=== PATIENT | female | born 1960 | race Caucasian/White ===

== ENCOUNTER 2017-04-14 09:54 | Observation (INO) ==
[2017-04-14] MEDS ORDERED: Glycopyrrolate 0.2 MG/ML VIAL IVP ONE (10:40)
[2017-04-14] MEDS ORDERED: Ondansetron 4 MG/2 ML VIAL IVP ONE ×2 (10:40→16:20)
--- NOTE | 2017-04-14 10:43 | Emergency Department Note ---
Disposition Clinical Impression: Gallstone (impacted) Abdominal pain Qualifiers: Abdominal location: epigastric Qualified Code(s): R10.13 - Epigastric pain Disposition: Admitted As Inpatient Condition: Fair Time of Disposition: 16:05 Abdominal Pain HPI - General Chief Complaint: ED Abdominal Pain Stated Complaint: abd pain Time Seen by Provider: 04/14/17 10:29 Source: patient, family Nursing Notes Reviewed: Yes Vital Signs Reviewed: Yes - History of Present Illness HPI Narrative: 56-year-old female presents because of epigastric abdominal pain. She began at 1 AM with sudden onset of epigastric abdominal pain followed by nausea and vomiting. Pain has been persistent since that time. She has had diarrhea on and off for the past 2 days well. No fevers or chills. No radiation of pain to her back or chest. No known ill exposures. No recent injury. No prior surgeries. No history of any gallbladder issues. Pt Subjective Complaint: abdominal pain Onset (ago): hour(s) Consistency: constant Location: epigastric Pain Severity: moderate Pain Scale: 10 Quality: cramping, stabbing, aching Radiation: none Migration to: no migration Improves with: nothing Worsens with: nothing Associated symptoms: Reports: nausea, vomiting, diarrhea. Denies: fever, chills Treatments prior to arrival: none - Related Data Home Medications Medication Instructions Recorded Confirmed Multivitamin [One Daily 1 each PO DAILY 04/14/17 04/14/17 Multivitamin] Terbinafine HCl [Lamisil] 250 mg PO DAILY 04/14/17 04/14/17 Allergies Allergy/AdvReac Type Severity Reaction Status Date / Time No Known Allergies Allergy Verified 04/14/17 09:57 All systems ED: reviewed and negative except as stated. Constitutional: Denies: fever Cardiovascular: Denies: chest pain, palpitations Respiratory: Denies: cough, dyspnea Gastrointestinal: Reports: abdominal pain, nausea, vomiting, diarrhea. Denies: hematemesis Genitourinary: Denies: urgency, dysuria Abdominal Pain PMH - Past Medical History Medical history: Reports: no medical history Female Surgical History: Reports: other Psychiatric history: Reports: no psych history - Social History Smoking status: Never smoker Alcohol use: Reports: occasionally Drug use: Reports: none Physical Exam Patient appears to be in moderate pain - General Limitations: no limitations General appearance: alert - Head Head exam: atraumatic, normocephalic - Eye Eye exam: Present: normal appearance, PERRL - ENT ENT exam: mucous membranes dry - Neck Neck exam: Present: normal inspection - Chest Chest inspection: Present: normal inspection, symmetric chest wall rise - Respiratory Respiratory exam: Present: normal lung sounds bilaterally. Absent: respiratory distress - Cardiovascular Cardiovascular exam: Present: regular rate, normal rhythm - Abdominal Exam Abdominal exam: Present: soft, tenderness (epigastrium, RUQ ) - Extremities Exam Extremities exam: Absent: tenderness - Expanded Lower Extremity Exam Foot/toe exam: Absent: tenderness, swelling Neurovascular/Tendon exam: Present: normal capillary refill. Absent: pulse deficit - Back Exam Back exam: Present: normal inspection. Absent: CVA tenderness (R), CVA tenderness (L) - Neurological Exam Neurological exam: Present: alert, oriented X3 - Psychiatric Psychiatric exam: Present: normal affect, normal mood - Skin Skin exam: Present: warm, dry Course - Reevaluation(s) Reevaluation #1: Gallbladder ultrasound suggests multiple gallstones and probably a stone in the cystic duct. She has no fever but does have a white count of 14,000. Pain is difficult to control. Discussed with Dr. Haines and he will see her in the emergency department. Requested one dose of IV Zosyn. Time: 16:00 Reevaluation #2: Taken to the OR for cholecystectomy Time: 18:26 Vital Signs Temperature 98.1 F 04/14/17 09:55 Pulse Rate 76 04/14/17 09:55 Respiratory Rate 18 04/14/17 09:55 Blood Pressure 165/98 04/14/17 09:55 O2 Sat by Pulse Oximetry 100 04/14/17 09:55 Temperature 98.1 F 04/14/17 09:55 Pulse Rate 80 04/14/17 14:40 Respiratory Rate 16 04/14/17 18:06 Blood Pressure 142/85 04/14/17 18:06 O2 Sat by Pulse Oximetry 96 04/14/17 14:40 Oxygen Delivery Oxygen Delivery Room Air Abdominal Pain - Lab Data Result diagrams: 04/14/17 10:48 04/14/17 10:48 Lab Results 04/14/17 04/14/17 04/14/17 Range/Units 10:48 10:48 10:48 WBC 14.7 H (4.3-11.1) K/mcL RBC 5.24 H (3.82-4.97) M/mcL Hgb 15.5 H (11.5-15.4) g/dL Hct 44.8 (35.3-44.9) % MCV 85.5 (83.0-100.0) fL MCH 29.6 (28.0-33.3) pg MCHC 34.6 (31.6-35.5) g/dL RDW 12.5 (11.5-14.5) % Plt Count 358 (140-400) K/mcL MPV 10.1 (9.4-12.4) fL Immature Gran % 0.3 (0-4) % Seg Neutrophils % 91.8 % Lymphocytes % 5.3 % Monocytes % 2.4 % Eosinophils % 0.1 % Basophils % 0.1 % Neutrophils # 13.5 H (1.6-8.9) K/mcL Lymphocytes # 0.8 (0.6-4.6) K/mcL Monocytes # 0.4 (0.0-1.3) K/mcL Eosinophils # 0.0 (0.0-0.6) K/mcL Basophils # 0.0 (0.0-0.2) K/mcL Sodium 134 L (136-145) mEq/L Potassium 3.4 L (3.5-5.1) mEq/L Chloride 102 (98-107) mEq/L Carbon Dioxide 18 L (23-29) mEq/L BUN 12 (6-20) mg/dL Creatinine 0.52 L (0.60-1.20) mg/dL Est GFR ( Amer) > 60 (> 60) Est GFR (Non-Af Amer) > 60 (> 60) BUN/Creatinine Ratio 23 (6-26) Glucose 156 H (70-105) mg/dL Calculated Osmolality 281 (280-300) Lactic Acid 2.0 (0.5-2.2) mmol/L Calcium 9.8 (8.6-10.3) mg/dL Total Bilirubin 0.6 (0.3-1.0) mg/dL Direct Bilirubin 0.1 (0.0-0.2) mg/dL Indirect Bilirubin 0.5 (0.0-1.2) mg/dL AST 12 L (13-39) Units/L ALT 9 (7-52) Units/L Alkaline Phosphatase 81 (34-104) Units/L Serum Total Protein 7.5 (6.4-8.9) g/dL Albumin 4.8 (3.5-5.7) g/dL Globulin 2.7 (2.4-3.5) g/dL Albumin/Globulin Ratio 1.8 (1.1-2.2) Lipase 24 (11-82) Units/L Urine Color (Yellow) Urine Clarity (Clear) Urine pH (5.0-8.0) pH Units Ur Specific [place] (1.010-1.025) Urine Protein (Neg-Trace) mg/dL Urine Glucose (UA) (Normal) mg/dL Urine Ketones (Negative) mg/dL Urine Blood (Negative) Urine Nitrite (Negative) Urine Bilirubin (Negative) Urine Urobilinogen (Normal) mg/dL Ur Leukocyte Esterase (Negative) Urine Microscopic RBC (0-3) per hpf Urine Microscopic WBC (0-3) per hpf Ur Squamous Epith Cells (None-Few) per lpf Urine Bacteria (None-Few) per hpf Hyaline Casts (None-Few) per lpf Ur Culture Indicated? (NO) 04/14/17 Range/Units 11:40 WBC (4.3-11.1) K/mcL RBC (3.82-4.97) M/mcL Hgb (11.5-15.4) g/dL Hct (35.3-44.9) % MCV (83.0-100.0) fL MCH (28.0-33.3) pg MCHC (31.6-35.5) g/dL RDW (11.5-14.5) % Plt Count (140-400) K/mcL MPV (9.4-12.4) fL Immature Gran % (0-4) % Seg Neutrophils % % Lymphocytes % % Monocytes % % Eosinophils % % Basophils % % Neutrophils # (1.6-8.9) K/mcL Lymphocytes # (0.6-4.6) K/mcL Monocytes # (0.0-1.3) K/mcL Eosinophils # (0.0-0.6) K/mcL Basophils # (0.0-0.2) K/mcL Sodium (136-145) mEq/L Potassium (3.5-5.1) mEq/L Chloride (98-107) mEq/L Carbon Dioxide (23-29) mEq/L BUN (6-20) mg/dL Creatinine (0.60-1.20) mg/dL Est GFR ( Amer) (> 60) Est GFR (Non-Af Amer) (> 60) BUN/Creatinine Ratio (6-26) Glucose (70-105) mg/dL Calculated Osmolality (280-300) Lactic Acid (0.5-2.2) mmol/L Calcium (8.6-10.3) mg/dL Total Bilirubin (0.3-1.0) mg/dL Direct Bilirubin (0.0-0.2) mg/dL Indirect Bilirubin (0.0-1.2) mg/dL AST (13-39) Units/L ALT (7-52) Units/L Alkaline Phosphatase (34-104) Units/L Serum Total Protein (6.4-8.9) g/dL Albumin (3.5-5.7) g/dL Globulin (2.4-3.5) g/dL Albumin/Globulin Ratio (1.1-2.2) Lipase (11-82) Units/L Urine Color Yellow (Yellow) Urine Clarity Clear (Clear) Urine pH 8.5 H (5.0-8.0) pH Units Ur Specific [place] 1.019 (1.010-1.025) Urine Protein 30 H (Neg-Trace) mg/dL Urine Glucose (UA) Normal (Normal) mg/dL Urine Ketones 80 H (Negative) mg/dL Urine Blood Negative (Negative) Urine Nitrite Negative (Negative) Urine Bilirubin Negative (Negative) Urine Urobilinogen Normal (Normal) mg/dL Ur Leukocyte Esterase Negative (Negative) Urine Microscopic RBC 5-15 H (0-3) per hpf Urine Microscopic WBC 0-3 (0-3) per hpf Ur Squamous Epith Cells Many H (None-Few) per lpf Urine Bacteria None Seen (None-Few) per hpf Hyaline Casts None Seen (None-Few) per lpf Ur Culture Indicated? NO (NO)
[2017-04-14 11:00] LABS: Basophils % 0.1 %; Eosinophils % 0.1 %; Hematocrit 44.8 % (35.3-44.9); Hemoglobin 15.5 g/dL (11.5-15.4); Immature Granulocytes % 0.3 % (0-4); Lymphocytes # 0.8 K/mcL (0.6-4.6); Lymphocytes % 5.3 %; Mean Corpuscular HGB Conc 34.6 g/dL (31.6-35.5); Mean Corpuscular Hemoglobin 29.6 pg (28.0-33.3); Mean Corpuscular Volume 85.5 fL (83.0-100.0); Mean Platelet Volume 10.1 fL (9.4-12.4); Monocytes # 0.4 K/mcL (0.0-1.3); Monocytes % 2.4 %; Neutrophils # 13.5 K/mcL (1.6-8.9); Platelet Count 358 K/mcL (140-400); Red Blood Count 5.24 M/mcL (3.82-4.97); Red Cell Distribution Width 12.5 % (11.5-14.5); Segmented Neutrophils % 91.8 %
[2017-04-14] MEDS ORDERED: 0.9 % Sodium Chloride 1,000 ML IVC ONE (11:17)
[2017-04-14] MEDS ORDERED: 0.9 % Sodium Chloride 1,000 ML ONE (11:19)
[2017-04-14 11:37] LABS: Albumin 4.8 g/dL (3.5-5.7); Bilirubin,Direct 0.1 mg/dL (0.0-0.2); Bilirubin,Indirect 0.5 mg/dL (0.0-1.2); Bilirubin,Total 0.6 mg/dL (0.3-1.0); Calcium 9.8 mg/dL (8.6-10.3); Carbon Dioxide 18 mEq/L (23-29); Chloride 102 mEq/L (98-107); Potassium 3.4 mEq/L (3.5-5.1); Sodium 134 mEq/L (136-145)
[2017-04-14 11:44] LABS: Alanine Aminotransferase 9 Units/L (7-52); Albumin/Globulin Ratio 1.8 (1.1-2.2); Alkaline Phosphatase 81 Units/L (34-104); Aspartate Amino Transferase 12 Units/L (13-39); BUN/Creatinine Ratio 23 (6-26); Blood Urea Nitrogen 12 mg/dL (6-20); Globulin 2.7 g/dL (2.4-3.5); Glucose 156 mg/dL (70-105); Lipase 24 Units/L (11-82); Osmolality,Calculated 281 (280-300); Total Protein 7.5 g/dL (6.4-8.9); eGFR For African Americans > 60 (> 60); eGFR For Non-African Americans > 60 (> 60)
[2017-04-14 11:53] LABS: Bilirubin,Urine Negative (Negative); Blood,Urine Negative (Negative); Clarity,Urine Clear (Clear); Color,Urine Yellow (Yellow); Glucose,Urine (UA) Normal (Normal); Ketones,Urine 80 mg/dL (Negative); Leukocyte Esterase,Urine Negative (Negative); Nitrite,Urine Negative (Negative); PH,Urine 8.5 pH Units (5.0-8.0); Protein,Urine 30 mg/dL (Neg-Trace); Specific Gravity,Urine 1.019 (1.010-1.025); Urobilinogen,Urine Normal (Normal)
[2017-04-14 11:56] LABS: Bacteria,Urine None Seen per hpf (None-Few); Hyaline Casts,Urine None Seen per lpf (None-Few); Squamous Epithelial Cell,Urine Many per lpf (None-Few); WBC,Urine 0-3 per hpf (0-3)
[2017-04-14] MEDS ORDERED: Famotidine 20 MG/2 ML VIAL IVP ONE (12:07)
[2017-04-14] MEDS ORDERED: *HR* FentaNYL (PF) 100 MCG/2 ML VIAL IVP ONE ×3 (12:07→16:19)
[2017-04-14] MEDS ORDERED: Piperacillin/Tazobactam 3.375 GM in 0.9 % Sodium Chloride Mini Bag 100 ML IVPB ONE (16:01)
[2017-04-14] MEDS ORDERED: *HR* Promethazine 25 MG/ML VIAL IVP PRN (17:49)
[2017-04-14] MEDS ORDERED: OXYCODONE Oral CONC 10 MG/0.5 ML ORAL.SYG SL PRN (17:51)
[2017-04-14] MEDS: D5% in 0.45% NACL w KCl 20 MEQ/1,000 ML MLS IVC SCH (20:57)
[2017-04-14] MEDS: Ketorolac 15 MG/ML VIAL IVP SCH (23:25)
[2017-04-15] MEDS: Ketorolac 15 MG/ML VIAL IVP SCH ×2 (05:45→20:11)
[2017-04-15] MEDS: D5% in 0.45% NACL w KCl 20 MEQ/1,000 ML MLS IVC SCH ×3 (05:46→21:15)
[2017-04-15] MEDS ORDERED: *HR* Propofol 200 MG/20 ML VIAL IVP ONE (07:37)
[2017-04-15] MEDS ORDERED: Lidocaine -MPF 4% 5 ML AMPUL ONE (07:37)
[2017-04-15] MEDS ORDERED: *HR* Midazolam HCl 2 MG/2 ML VIAL ONE (07:37)
[2017-04-15] MEDS ORDERED: *HR* FentaNYL (PF) 100 MCG/2 ML VIAL ONE ×2 (07:37→11:56)
[2017-04-15] MEDS ORDERED: *HR* Rocuronium Bromide 50 MG/5 ML VIAL ONE (07:37)
[2017-04-15] MEDS ORDERED: Lidocaine -MPF 2% 2 ML VIAL ONE (07:37)
--- NOTE | 2017-04-15 07:55 | Event Note ---
Date of Encounter: 04/15/17 Time of Encounter: 07:53 I reviewed this chart for quality since this patient was assigned to our service. I was not involved in Ms Macias's care. This is not documentation of a [id number] encounter.
[2017-04-15] MEDS ORDERED: Pantoprazole 40 MG VIAL IVP SCH (09:00)
[2017-04-15] MEDS ORDERED: Ringers Solution, Lactated 1,000 ML ONE (09:09)
[2017-04-15] MEDS ORDERED: Ondansetron 4 MG/2 ML VIAL IVP ONE (10:41)
[2017-04-15] MEDS ORDERED: *HR* Promethazine 25 MG/ML VIAL IVP PRN ×2 (10:41→13:25)
[2017-04-15] MEDS ORDERED: *HR* OxyCODONE Immed Rel 5 MG TABLET PO PRN (10:41)
[2017-04-15] MEDS ORDERED: *HR* HYDROmorphone 2 MG TABLET PO PRN (10:41)
[2017-04-15] MEDS ORDERED: *HR* Meperidine 25 MG/ML SYRINGE IVP PRN (10:41)
--- NOTE | 2017-04-15 10:41 | Anesthesia Evaluation PreOp ---
Date of Encounter: 04/15/17 Time of Encounter: 10:39 - Past History Planned Operation: Robotic lap cholecystectomy Cardiac History: Denies any Significant Hx Pulmonary History: Denies Any Significant HX PHARMACY COORDINATOR History: Denies Any Significant HX Other Medical History: Denies Any Significant HX Anesthesia History: No Prior Anesthetic Complications, Past Anesthesia (back sx , colonoscopy) Alcohol Use: occasionally Drug use: none Medications and Allergies Multivitamin [One Daily Multivitamin] 1 each PO DAILY 04/14/17 [History] Terbinafine HCl [Lamisil] 250 mg PO DAILY 04/14/17 [History] 3 Allergy/AdvReac Type Severity Reaction Status Date / Time No Known Allergies Allergy Verified 04/14/17 09:57 - Meds/Allergy Pre-op Review Medications Reviewed: Yes Allergies Reviewed: Yes Beta Blockers on Current Med List: No Anesthesia Results - Labs 04/14/17 10:48 04/14/17 10:48 Anesthesia Exam Vital Signs/O2 Sat, Most Current Temp Pulse Resp BP Pulse Ox 98.7 F 83 16 123/71 96 04/15/17 06:46 04/15/17 09:15 04/15/17 09:15 04/15/17 09:15 04/15/17 09:15 Height: 1.57m Weight: 88kg NPO (# of Hours): >8 - HEENT Pupil (Motor): Pupils equal, EOMI Mallampati: II Oral Opening: Greater than 3 - PHARMACY COORDINATOR LOC: Oriented PHARMACY COORDINATOR Motor: Normal RUE, Normal LUE, Normal RLE, Normal LLE, Normal Face PHARMACY COORDINATOR Sensory: Normal: RUE, LUE, RLE, LLE, Face - Cardiac Rhythm: Regular - Pulmonary Breath Sounds: bilateral Clear Respiratory Effort: Symmetrical Anesthesia Assess/Plan ASA Score: 2 Modified Roland Scale for Level of Consciousness: Cooperative, oriented, and tranquil Anesthetic Plan: General Monitoring Plan: Standard Monitors Recovery Plan: PACU
[2017-04-15] MEDS ORDERED: Ringers Solution, Lactated 1,000 ML IVC SCH (10:45)
[2017-04-15] MEDS ORDERED: Acetaminophen IV 1,000 MG/100 ML INFUS..BTL ONE (10:47)
--- NOTE | 2017-04-15 10:57 | General Surg History&Physical ---
Date of Encounter: 04/14/17 Time of Encounter: 18:00 Assessment and Plan (1) Gallstone (impacted) Current Visit: Yes Status: Acute 56 with biliary colic, acute chlecystitis; NPO IVF abx OR today for lap chapo; The assessment and plan as outlined above was discussed with the patient and/or family members who expressed understanding and agreement. All questions were answered. History of Present Illness Chief complaint: abdominal muna HPI: Ms. Macias is a 56 year old female h/o HTn, HLD, who presents with 1 day history of worsening abdominal pain. The pain is localized to the RUQ with radiation to the back with associated nausea, vomiting, and abdominal distension. The patient states that this is her first episode, but does recall a long standing history of intermittent "indigestion." She presents to the ED for further evaluation. Past Med Surg Social Fam HX - Past Medical History Medical history: no medical history Psychiatric history: no psych history - Past Surgical History Surgical History: no surgical history - Social History Smoking Status: Never smoker Alcohol use: occasionally Drug use: none - Family History Sister Adopted: [place]: Ayanna Oleary Family Member Ethnicity: Unknown Hx Family GI Disorders: Yes (gall stones) Medications and Allergies Multivitamin [One Daily Multivitamin] 1 each PO DAILY 04/14/17 [History] Terbinafine HCl [Lamisil] 250 mg PO DAILY 04/14/17 [History] 3 Allergy/AdvReac Type Severity Reaction Status Date / Time No Known Allergies Allergy Verified 04/14/17 09:57 Review of Systems All systems PM: A 10-system review of systems was performed and is negative for pertinent findings except as documented above in the HPI. General Surgery Exam Initial Vital Signs Temp Pulse Resp BP Pulse Ox 98.1 F 76 18 165/98 100 04/14/17 09:55 04/14/17 09:55 04/14/17 09:55 04/14/17 09:55 04/14/17 09:55 - General physical appearance well developed, no distress - Eyes normal ocular movement - ENT normocephalic - Neck no lymphadectomy - Respiratory normal expansion, normal respiratory effort - Cardiovascular Cardiovascular exam: Present: RRR - Abdomen Abdomen general surgery: Present: soft, tender Abdominal Tenderness: Present: RUQ - Integumentary Integumentary general surgery: Present: warm and dry - Neurologic Present: CN 2-12 grossly intact - Psychiatric Psychiatric general surgery: Present: A&Ox3 Results - Labs 04/14/17 10:48 04/14/17 10:48 Abnormal lab results WBC 14.7 K/mcL (4.3-11.1) H 04/14/17 10:48 RBC 5.24 M/mcL (3.82-4.97) H 04/14/17 10:48 Hgb 15.5 g/dL (11.5-15.4) H 04/14/17 10:48 Neutrophils # 13.5 K/mcL (1.6-8.9) H 04/14/17 10:48 Sodium 134 mEq/L (136-145) L 04/14/17 10:48 Potassium 3.4 mEq/L (3.5-5.1) L 04/14/17 10:48 Carbon Dioxide 18 mEq/L (23-29) L 04/14/17 10:48 Creatinine 0.52 mg/dL (0.60-1.20) L 04/14/17 10:48 Glucose 156 mg/dL (70-105) H 04/14/17 10:48 AST 12 Units/L (13-39) L 04/14/17 10:48 Urine pH 8.5 pH Units (5.0-8.0) H 04/14/17 11:40 Urine Protein 30 mg/dL (Neg-Trace) H 04/14/17 11:40 Urine Ketones 80 mg/dL (Negative) H 04/14/17 11:40 Urine Microscopic RBC 5-15 per hpf (0-3) H 04/14/17 11:40 Ur Squamous Epith Cells Many per lpf (None-Few) H 04/14/17 11:40 All other labs normal.
[2017-04-15] MEDS ORDERED: Dexamethasone 4 MG/ML VIAL ONE (11:20)
[2017-04-15] MEDS ORDERED: Ondansetron 4 MG/2 ML VIAL ONE (11:20)
[2017-04-15] MEDS ORDERED: Neostigmine Methylsulfate 3 MG/3 ML SYRINGE ONE (11:21)
[2017-04-15] MEDS ORDERED: Ketamine *HR* 500 MG/10 ML MDV ONE (11:31)
[2017-04-15] MEDS ORDERED: Ketorolac 30 MG/ML VIAL ONE (11:42)
--- NOTE | 2017-04-15 12:41 | Operative Note ---
Date of procedure: 04/15/17 Pre-op diagnosis: acute cholecystitis Post-op diagnosis: same Procedure: robotic cholecystectomy Complications: none Anesthesia: GETA Local Anesthetics: 0.5% Sensorcaine HCL SubQ (cc) Surgeon: Jessee Haines Was there an patient care nursing assistant present: Yes Remelt Sugar Boiler: Mariana Shankar Estimated blood loss (cc): 10 Specimen: gallbladder and contents Condition: stable Disposition: PACU Procedure in Detail: The patient was brought into the operating room suite and was placed in the supine position. Mechanical DVT prophylaxis was applied. A time-in was conducted. The patient underwent smooth induction of anesthesia. Preoperative antibiotics were given. The patient was prepped and draped in the usual fashion. A time-out was held identifying the correct patient, pathology, and procedure. Everyone was in agreement and we began the procedure. Incision to Dissection I started by creating a 12mm supraumbilical incision. Via open Celia technique I did enter into the abdomen. I inserted the 12mm trocar followed by the 30 degree camera, ensured that I did not cause intraabdominal injury upon entry, and quickly identified the gallbladder. I created a 5mm incisions one handbreadth to the left and right of the umbilical incision and an patient care nursing assistant port along the R anterior axillary line. I then docked the robot in the usual fashion. Using laparoscopic graspers I managed to elevate the gallbladder above the liver. At the Console I grasp the edge of the gallbladder to retract laterally. Using the [place] instrument as well as the hook-electrocautery, I dissected out the cystic duct and the cystic artery. I excised the posterior tissue to visualize the liver. I was able to clearly visualize the critical view of safety. Critical view of Safety to Excison of the gallbladder I then clipped both structures using plastic clips, two on the stay side, one on the specimen side. Using robotic scissors, I cut between the clip on the specimen side and the first clip on the stay side. Then using tension and counter-tension, I used the electrocautery to excise the gallbladder off of the liver bed. Before complete excision, I evaluated the liver bed to ensure there 1.) there was no bleeding, 2. No excessive bile leakage, and 3.) to evaluate my clips. There was no bleeding, bile leakage, and the clips were all the way across both duct and artery. Removal of gallbladder to Closure After undocking the robot, I inserted the endocatch bag into the umbilical port. I placed the specimen into the bag and retrieved it through the umbilical port. i then irrgiated the liver bed and above the liver before suctioning both irrigation fluid and air. I removed the 5mm ports, turned off the insufllation, then removed the 12mm umbilical port. I then close the umbilical fascia a vicryl suture in a figure of 8 fashion. All incisions were closed with interrupted 4-0 monocryl and sealed with dermabond. The patient tolerated the procedure well and went back to PACU in stable condition.
--- NOTE | 2017-04-15 13:23 | Anesthesia Evaluation Post Op ---
Date of Encounter: 04/15/17 Time of Encounter: 13:23 - Vital Signs Vital Signs: Vital Signs/O2 Sat, Most Current Temp Pulse Resp BP Pulse Ox 98.6 F 71 14 151/81 100 04/15/17 12:49 04/15/17 13:09 04/15/17 13:09 04/15/17 13:09 04/15/17 13:09 - Lungs Lungs: Clear Ascult./Percussion - Airway Airway: Non-obstructed - Cardiovascular Regular Rate - Mental Status Mental Status: Asleep with brisk response to light stimulation - Pain Pain Scale: 0 Pain Scale used: Numeric (1 - 10) - Nausea Vomiting Nausea Vomiting: Not Present - Hydration Hydration: Tolerates oral liquids - Discharge PostOp Status: Discharge Patient to home Attestation: I have assessed this patient and find they meet discharge criteria.
[2017-04-15] MEDS: OXYCODONE Oral CONC 10 MG/0.5 ML ORAL.SYG SL PRN ×2 (14:14→18:15)
[2017-04-15] MEDS ORDERED: *HR* PHENYLEPHRINE 1,000 MCG/10 ML SYRINGE IVP ONE (14:23)
[2017-04-16] MEDS: OXYCODONE Oral CONC 10 MG/0.5 ML ORAL.SYG SL PRN (02:58)
[2017-04-16] MEDS: D5% in 0.45% NACL w KCl 20 MEQ/1,000 ML MLS IVC SCH (08:27)
[2017-04-16] MEDS ORDERED: Pantoprazole 40 MG VIAL IVP SCH (09:00)
[2017-04-16 09:57] LABS: Basophils % 0.3 %; Eosinophils % 0.3 %; Hematocrit 39.2 % (35.3-44.9); Immature Granulocytes % 0.3 % (0-4); Lymphocytes # 1.6 K/mcL (0.6-4.6); Lymphocytes % 13.4 %; Mean Corpuscular HGB Conc 32.4 g/dL (31.6-35.5); Mean Corpuscular Hemoglobin 29.6 pg (28.0-33.3); Mean Corpuscular Volume 91.4 fL (83.0-100.0); Mean Platelet Volume 9.9 fL (9.4-12.4); Monocytes # 0.9 K/mcL (0.0-1.3); Monocytes % 7.3 %; Neutrophils # 9.2 K/mcL (1.6-8.9); Platelet Count 276 K/mcL (140-400); Red Blood Count 4.29 M/mcL (3.82-4.97); Red Cell Distribution Width 13.3 % (11.5-14.5); Segmented Neutrophils % 78.4 %
[2017-04-16 10:05] LABS: Hemoglobin 12.7 g/dL (11.5-15.4)
[2017-04-16 10:16] LABS: BUN/Creatinine Ratio 11 (6-26); Blood Urea Nitrogen 6 mg/dL (6-20); Calcium 8.5 mg/dL (8.6-10.3); Carbon Dioxide 28 mEq/L (23-29); Chloride 107 mEq/L (98-107); Glucose 138 mg/dL (70-105); Osmolality,Calculated 288 (280-300); Potassium 3.6 mEq/L (3.5-5.1); Sodium 139 mEq/L (136-145); eGFR For African Americans > 60 (> 60); eGFR For Non-African Americans > 60 (> 60)
[2017-04-16 10:53] VITALS: BP 127/72
--- NOTE | 2017-04-16 13:14 | Discharge Summary ---
Date of Encounter: 04/16/17 Time of Encounter: 13:10 - Discharge Diagnosis (1) Gallstone (impacted) Priority: Primary Status: Acute Comments: POD#1 s/p robotic chapo diet as tolerated pain with PO pain meds activity as tolerated okay for discharge today - Discharge Medications Prescriptions: Oxycodone HCl 5 mg PO Q6HR PRN 7 Days #28 tablet PRN Reason: Pain Home Medications: Multivitamin [One Daily Multivitamin] 1 each PO DAILY 04/14/17 [History] Terbinafine HCl [Lamisil] 250 mg PO DAILY 04/14/17 [History] Oxycodone HCl 5 mg PO Q6HR PRN 7 Days #28 tablet 04/16/17 [Rx] Allergies/Adverse Reactions: 3 Allergy/AdvReac Type Severity Reaction Status Date / Time No Known Allergies Allergy Verified 04/14/17 09:57 General Surgery Exam Initial Vital Signs Temp Pulse Resp BP Pulse Ox 98.1 F 76 18 165/98 100 04/14/17 09:55 04/14/17 09:55 04/14/17 09:55 04/14/17 09:55 04/14/17 09:55 - General physical appearance no distress - Abdomen Abdomen general surgery: Present: soft, tender Abdominal Tenderness: Present: RUQ (appropriately tender) - Incision Incision: Present: clean and dry, intact - Neurologic Present: CN 2-12 grossly intact - Psychiatric Psychiatric general surgery: Present: A&Ox3 Date of admission: 04/14/17 16:55 Primary care physician: Beto Mai MD Discharging clinician: Jessee Haines Anticipated date of discharge: 04/16/17 - Patient Status Disposition: Home, Self-Care Condition: Fair Overall status at discharge: patient is progressing back to baseline - Discharge Instructions Follow Up With: Beto Mai MD [Primary Care Provider] - Jessee Haines MD [Non-Partnered Physician] - Additional Instructions: Pain Narcotics are prescribed. 1-2 tabs every 6 hours. Please take with meals. DO NOT drive while taking narcotics. Activity As tolerated. However, I encourage you to limit heaving lifting and strenuous activity until evaluated in clinic. Diet As tolerated. Bowel Regimen As long as you are taking narcotics, please take the stool softner daily. Warnings If you experience significant redness around the incision or drainage from the incision that is purulent or malodorous, or you experience fevers, chills, or food intolerance (including nausea, vomiting, abdominal pain or distension), jaundice or yellow skin, eyes, tongue/cheek, or any symptoms you feel warrant evaluation, please call the office. If unable to reach the office, please go to nearest urgent care center or emergency department - Diet and Activity Activity: resume usual activities as tolerated Diet: advance to your usual diet - Hospital Course Hospital course: Ms. Macias is a 56 year old female - Time Spent with Patient Total time spent providing and/or coordinating discharge services: Greater than 30 minutes Labs on day of discharge: Labs from last 24 hours 04/16/17 04/16/17 04/15/17 09:40 09:40 05:38 WBC 11.7 H RBC 4.29 Hgb 12.7 D Hct 39.2 MCV 91.4 MCH 29.6 MCHC 32.4 RDW 13.3 Plt Count 276 MPV 9.9 Immature Gran % 0.3 Seg Neutrophils % 78.4 Lymphocytes % 13.4 Monocytes % 7.3 Eosinophils % 0.3 Basophils % 0.3 Neutrophils # 9.2 H Lymphocytes # 1.6 Monocytes # 0.9 Eosinophils # 0.0 Basophils # 0.0 Sodium 139 Potassium 3.6 Chloride 107 Carbon Dioxide 28 BUN 6 Creatinine 0.56 L Est GFR ( Amer) > 60 Est GFR (Non-Af Amer) > 60 BUN/Creatinine Ratio 11 Glucose 138 H POC Glucose 124 H Calculated Osmolality 288 Calcium 8.5 L
== END 2017-04-16 14:49 | disposition home or self-care (01) ==
LOC: 3ANU 09:54 → EMEROO 09:54 → 3ANU 18:22
PROVIDERS: ADMIT Surgery; ATTEND Surgery